=== PATIENT | female | born 1990 | race Two or more races ===

== ENCOUNTER 2022-08-14 18:26 | Emergency (ER) | payer MEDICAID ==
[~2022-08-14] VITALS: Ht 157.5 cm; Wt 72.7 kg
[2022-08-14] MEDS ORDERED: ACETAMINOPHEN 325 MG TABLET PO ONE (20:45)
[2022-08-14] MEDS ORDERED: IBUPROFEN 600 MG TABLET PO ONE (20:45)
[2022-08-14] MEDS ORDERED: AMOX1TAB16 PO (21:26)
[2022-08-14] MEDS ORDERED: BACTDSB PO (21:26)
[2022-08-14] MEDS ORDERED: AMOX TR/POT CLAV 875 MG/125 MG TABLET PO ONE (21:30)
[2022-08-14] MEDS ORDERED: SULFAMETHOX/TRIMETH DS 800-160 MG/TABLET PO ONE (21:30)
[2022-08-14 22:33] VITALS: BP 124/68
== END 2022-08-14 22:48 | disposition home or self-care (01) ==
LOC: EMS 18:26
DX: N34.0 Urethral abscess (principal)
CPT/HCPCS: 99284; Z7502; Z7610

== ENCOUNTER 2023-02-22 04:22 | Emergency (ER) | payer MEDICAID, OTHER ==
[~2023-02-22] VITALS: Ht 154.9 cm; Wt 74.5 kg
[~2023-02-22 04:22] MED LIST: AMOX1TAB16 PO; BACTDSB PO
[2023-02-22 04:40] VITALS: BP 101/64; PULSE 95; RESP 15; TEMP 98
[2023-02-22] MEDS ORDERED: DiphenhydrAMINE HCL 25 MG CAPSULE PO ONE (06:45)
[2023-02-22] MEDS ORDERED: PredniSONE 20 MG TABLET PO ONE (06:45)
[2023-02-22] MEDS ORDERED: DOXY50 PO (07:37)
[2023-02-22] MEDS ORDERED: PRED-554 PO (07:37)
[2023-02-23] MEDS ORDERED: AMOXICILLIN PO (10:40)
[2023-02-23] MEDS ORDERED: AMOX250C4 PO (13:33)
[2023-02-23] MEDS ORDERED: DIPH25TA51 PO (14:38)
== END 2023-02-22 08:00 | disposition home or self-care (01) ==
LOC: EMS 04:23
DX: L50.0 Allergic urticaria (principal); T36.0X5A Adverse effect of penicillins, initial encounter; Z98.51 Tubal ligation status; Y92.89 Other specified places as the place of occurrence of the external cause
CPT/HCPCS: 99283; J7512

== ENCOUNTER 2023-02-23 09:24 | Emergency (ER) | payer MEDICAID ==
[~2023-02-23] VITALS: Ht 154.9 cm; Wt 74.0 kg
[~2023-02-23 09:24] MED LIST changes: +DOXY50 PO; +PRED-554 PO
[2023-02-23 09:37] VITALS: TEMP 98.3
[2023-02-23] MEDS: FAMOTIDINE 20 MG/2 ML VIAL IVP ONE (10:04)
[2023-02-23] MEDS: DEXAMETHASONE SOD PHOS 4 MG/ML 5 ML VIAL IVP ONE (10:04)
[2023-02-23] MEDS: DiphenhydrAMINE HCL 50 MG/ML VIAL IVP ONE (10:05)
[2023-02-23 10:24] LABS: BASOPHILS % (AUTO) 0.5 % (0.0-2.0); EOSINOPHILS % (AUTO) 0.2 % (1.0-6.0); HEMATOCRIT 38.3 % (36-46); HEMOGLOBIN 12.7 g/dL (12.0-16.0); LYMPHOCYTES # (AUTO) 2.2 K/uL (1.0-4.8); LYMPHOCYTES % (AUTO) 15.1 % (22.0-44.0); MEAN CORPUSCULAR HGB CONC 33.2 G/dL (31.0-37.0); MEAN CORPUSCULAR VOLUME 90 fL (80-100); MONOCYTES # (AUTO) 0.5 K/uL (0.1-1.0); MONOCYTES % (AUTO) 3.8 % (2.0-9.0); NEUTROPHILS # (AUTO) 11.6 K/uL (1.8-7.7); NEUTROPHILS % (AUTO) 80.4 % (40.0-70.0); PLATELET COUNT (AUTO) 281 K/uL (150-450); RED BLOOD CELL COUNT(AUTO) 4.25 MIL/uL (4.00-5.20); RED CELL DISTRIBUTION WIDTH 14.2 % (11.5-14.5); WHITE BLOOD COUNT (AUTO) 14.4 K/uL (4.5-11.0)
[2023-02-23] MEDS ORDERED: AMOXICILLIN PO (10:40)
[2023-02-23 11:05] LABS: ANION GAP 12 mmol/L (8-16); CALCIUM, TOTAL 8.6 mg/dL (8.8-10.5); CARBON DIOXIDE 23 mmol/L (22-29); CHLORIDE 104 mmol/L (98-107); CREATININE 0.74 mg/dL (0.60-1.30); GLOMERULAR FILTR. RATE CALC > 60 mL/min (>60); GLUCOSE,RANDOM 116 mg/dL (70-110); POTASSIUM 3.6 mmol/L (3.5-5.1); SODIUM SERUM 139 mmol/L (136-145); UREA NITROGEN, BLOOD 10 mg/dL (7-18)
[2023-02-23 11:10] LABS: ALANINE AMINOTRANSFERASE 18 U/L (12-78); ALKALINE PHOSPHATASE 78 U/L (46-116); ASPARTATE AMINOTRANSFERASE 14 U/L (15-37); BILIRUBIN,TOTAL 0.6 mg/dL (0.1-1.0); TOTAL PROTEIN, SERUM 8.1 g/dL (6.4-8.2)
[2023-02-23 13:25] VITALS: BP 107/63; PULSE 94; RESP 18
[2023-02-23] MEDS ORDERED: AMOX250C4 PO (13:33)
[2023-02-23] MEDS ORDERED: DIPH25TA51 PO (14:38)
== END 2023-02-23 14:45 | disposition home or self-care (01) ==
LOC: EMS 09:44
DX: L25.8 Unspecified contact dermatitis due to other agents (principal); T36.0X5A Adverse effect of penicillins, initial encounter; Z98.51 Tubal ligation status; Y92.89 Other specified places as the place of occurrence of the external cause
CPT/HCPCS: 99284; 96374; 96375; 80053; 85025; 36415; J1100; J1200; J3490